=== PATIENT | female | born 1995 | race Caucasian/White ===

== ENCOUNTER 2018-01-11 08:18 | Day surgery (SDC) | payer OTHER ==
[~2018-01-11] VITALS: Ht 175.3 cm; Wt 84.1 kg
[2018-01-11 08:41] VITALS: BP 105/70
[2018-01-11 08:42] VITALS: BP 105/70
[2018-01-11] MEDS ORDERED: MIDAZOLAM 1 MG/ML, 2ML ONE (09:03)
[2018-01-11] MEDS ORDERED: FENTANYL PF 100 MCG/2ML ONE ×2 (09:04→10:54)
[2018-01-11] MEDS ORDERED: BUPIVACAINE/PF 0.25% ONE (09:07)
[2018-01-11] MEDS ORDERED: EPINEPHRINE 1 MG/ML, 1ML ONE (09:08)
[2018-01-11] MEDS ORDERED: SILVER NITRATE STICK TP ONE (09:08)
[2018-01-11 09:17] LABS: BASOPHILS # (AUTO) 0.05 x10^3/uL (0-0.1); BASOPHILS % (AUTO) 1 % (0-1); EOSINOPHILS # (AUTO) 0.18 x10^3/uL (0-0.4); EOSINOPHILS % (AUTO) 2 % (1-7); LYMPHOCYTES % (AUTO) 28 % (22-44); MD NO; MEAN CORPUSCULAR HEMOGLOBIN 30.4 pg (27.0-34.8); MEAN CORPUSCULAR HGB CONC 34.2 g/dL (32.4-35.8); MEAN CORPUSCULAR VOLUME 88.9 fL (80-100); MONOCYTES # (AUTO) 0.59 x10^3/uL (0.2-0.8); MONOCYTES % (AUTO) 8 % (2-9); NEUTROPHILS # (AUTO) 4.73 x10^3/uL (1.8-6.8); NEUTROPHILS % (AUTO) 62 % (42-75); PLATELET COUNT 231 x10^3/uL (130-400); RED BLOOD COUNT 5.12 x10^6/uL (3.82-5.3); RED CELL DISTRIBUTION WIDTH 12.6 % (9.6-15.2)
[2018-01-11 09:22] LABS: INTERNATIONAL NORMALIZED RATIO 1.04 (0.93-1.1); PROTHROMBIN TIME 10.8 Seconds (9.6-11.5)
[2018-01-11] MEDS ORDERED: NEOSTIGMINE 1 MG/ML, 10ML ONE (09:49)
[2018-01-11] MEDS ORDERED: KETOROLAC 30 MG/1 ML ONE (09:49)
[2018-01-11] MEDS ORDERED: SUCCINYLCHOLINE 20 MG/ML, 10ML ONE (09:49)
[2018-01-11] MEDS ORDERED: CEFAZOLIN 1,000 MG ONE (09:49)
[2018-01-11] MEDS ORDERED: ROCURONIUM 10MG/ML,5ML ONE (09:49)
[2018-01-11] MEDS ORDERED: DEXAMETHASONE 4 MG/ML, 1ML ONE (09:49)
[2018-01-11] MEDS ORDERED: GLYCOPYRROLATE 0.2MG/1ML, 5ML ONE (09:49)
[2018-01-11] MEDS ORDERED: PROPOFOL 10 MG/ML, 20ML ONE (09:49)
[2018-01-11] MEDS ORDERED: hydrALAzine 20 MG/ML, 1ML IV PRN (10:30)
[2018-01-11] MEDS ORDERED: MIDAZOLAM 1 MG/ML, 2ML IV PRN (10:30)
[2018-01-11] MEDS ORDERED: PROMETHAZINE 12.5 MG SUPP PR PRN (10:30)
[2018-01-11] MEDS ORDERED: morphine SULFATE 10 MG/ML, 1ML IV PRN ×2 (10:30→12:30)
[2018-01-11] MEDS ORDERED: EPHEDRINE 50 MG/ML, 1ML IVPush PRN (10:30)
[2018-01-11] MEDS ORDERED: ONDANSETRON 2MG/ML, 2ML IVPush PRN (10:30)
[2018-01-11] MEDS ORDERED: MEPERIDINE/PF 25MG/0.5ML IVPush PRN (10:30)
[2018-01-11] MEDS ORDERED: ALBUTEROL SULFATE 2.5 MG/3 ML NPPB PRN (10:30)
[2018-01-11] MEDS ORDERED: ACETAMINOPHEN 325 MG TABLET PO PRN (10:30)
[2018-01-11] MEDS ORDERED: HYDROcodone/APAP 7.5-325MG/15ML UDC PO PRN ×2 (10:30→12:30)
[2018-01-11] MEDS ORDERED: LABETALOL 5MG/ML, 20ML IV PRN (10:30)
[2018-01-11] MEDS ORDERED: OXYcodone 5 MG/5 ML ORAL.SOL UDC PO PRN (10:30)
[2018-01-11] MEDS ORDERED: METOPROLOL 1 MG/ML, 5ML IV PRN (10:30)
[2018-01-11] MEDS ORDERED: DIAZEPAM 5 MG/ML, 2ML IVPush PRN (10:30)
[2018-01-11] MEDS ORDERED: PROMETHAZINE 25 MG/ML, 1ML IV PRN (10:30)
[2018-01-11] MEDS ORDERED: ACETAMINOPHEN 650 MG/20.3 ML UDC ONE (10:48)
[2018-01-11] MEDS ORDERED: OXYcodone 5 MG/5 ML ORAL.SOL UDC ONE (10:49)
[2018-01-11] MEDS: FENTANYL PF 100 MCG/2ML IV PRN ×2 (10:59→11:13)
[2018-01-11] MEDS ORDERED: IBUP200T49 PO (11:52)
[2018-01-11] MEDS ORDERED: OXYC-302 PO (11:53)
[2018-01-11] MEDS ORDERED: KETOROLAC 30 MG/1 ML IV PRN (12:30)
[2018-01-11 13:25] VITALS: BP 103/67
[2018-01-11 14:00] VITALS: BP 103/63
[2018-01-16] MEDS ORDERED: IBUPROFEN 600 MG TABLET PO SCH (06:00)
== END 2018-01-11 14:20 | disposition home or self-care (01) ==
LOC: OUT 08:18 → 4NOR 08:37 → OUT 14:20
PROVIDERS: ATTEND Obstetrics & Gynecology
DX: N80.3 Endometriosis of pelvic peritoneum (principal); F31.9 Bipolar disorder, unspecified; Z98.890 Other specified postprocedural states
CPT/HCPCS: 36415; 58662; 84703; 85025; 85610; 85730; J0171; J0330; J0690; J1100; J1885; J2250; J2704; J2710; J3010; J3490

== ENCOUNTER 2018-09-03 09:25 | Emergency (ER) | payer OTHER ==
[~2018-09-03] VITALS: Ht 175.3 cm; Wt 87.4 kg
[~2018-09-03 09:25] MED LIST: IBUP200T49 PO; OXYC-302 PO
[2018-09-03] MEDS ORDERED: ONDANSETRON 2MG/ML, 2ML IVPush ONE (10:00)
[2018-09-03] MEDS ORDERED: MORPHINE SULFATE 4 MG/ML, 1ML IVPush PRN (10:00)
[2018-09-03 10:46] LABS: BASOPHILS # (AUTO) 0.06 x10^3/uL (0-0.1); BASOPHILS % (AUTO) 1 % (0-1); EOSINOPHILS # (AUTO) 0.31 x10^3/uL (0-0.4); EOSINOPHILS % (AUTO) 4 % (1-7); LYMPHOCYTES # (AUTO) 2.07 x10^3/uL (1-3.4); LYMPHOCYTES % (AUTO) 23 % (22-44); MD NO; MEAN CORPUSCULAR HEMOGLOBIN 31.6 pg (27.0-34.8); MEAN CORPUSCULAR HGB CONC 34.7 g/dL (32.4-35.8); MEAN CORPUSCULAR VOLUME 91.1 fL (80-100); MEAN PLATELET VOLUME 9.6 fL (7.4-10.4); MONOCYTES % (AUTO) 8 % (2-9); NEUTROPHILS # (AUTO) 5.77 x10^3/uL (1.8-6.8); NEUTROPHILS % (AUTO) 65 % (42-75); PLATELET COUNT 254 x10^3/uL (130-400); RED BLOOD COUNT 4.95 x10^6/uL (3.82-5.3); RED CELL DISTRIBUTION WIDTH 12.6 % (9.6-15.2)
[2018-09-03 10:54] LABS: ALANINE AMINOTRANSFERASE 20 U/L (12-78); ALBUMIN 4.4 g/dL (3.4-5.0); ANION GAP 5 mmol/L (5-15); CALCIUM 9.2 mg/dL (8.5-10.1); CHLORIDE 108 mmol/L (98-107); CREATININE 0.83 mg/dL (0.55-1.02)
[2018-09-03 10:56] LABS: ALKALINE PHOSPHATASE 58 U/L (45-117); BILIRUBIN,TOTAL 0.6 mg/dL (0.2-1.0); TOTAL PROTEIN 7.6 g/dL (6.4-8.2)
[2018-09-03] MEDS ORDERED: ONDANSETRON 2MG/ML, 2ML ONE (11:17)
[2018-09-03] MEDS ORDERED: MORPHINE SULFATE 4 MG/ML, 1ML ONE (11:17)
[2018-09-03 11:34] LABS: HCG UR SG 1.031 (1.003-1.030)
[2018-09-03 11:37] LABS: CULTURE INDICATED? YES; MICROSCOPIC INDICATED
[2018-09-03] MEDS ORDERED: KETOROLAC 60 MG/2 ML IVPush ONE (13:30)
[2018-09-03] MEDS ORDERED: KETOROLAC 30 MG/1 ML ONE (13:36)
[2018-09-03 13:42] VITALS: BP 113/66
== END 2018-09-03 14:05 | disposition home or self-care (01) ==
LOC: ED 11:33
DX: R10.11 Right upper quadrant pain (principal); R10.32 Left lower quadrant pain; R19.7 Diarrhea, unspecified; R11.0 Nausea; Z88.9 Allergy status to unspecified drugs, medicaments and biological substances
CPT/HCPCS: 36415; 74177; 80053; 81001; 81025; 83690; 85025; 87086; 96374; 96375; 99285; J1885; J2405